=== PATIENT | female | born 1975 | race Caucasian/White ===

== ENCOUNTER 2017-06-09 21:07 | Emergency (ER) | payer OTHER ==
[2017-06-09] MEDS: HYDROCODONE/APAP (5/325) TAB PO (23:25)
== END 2017-06-10 00:20 | disposition home or self-care (01) ==
LOC: FTE 21:07
DX: S89.91XA Unspecified injury of right lower leg, initial encounter (principal); E11.9 Type 2 diabetes mellitus without complications; X58.XXXA Exposure to other specified factors, initial encounter; Y92.9 Unspecified place or not applicable
CPT/HCPCS: 73562; 99283-25